=== PATIENT | female | born 1985 | race Asian ===

== ENCOUNTER 2024-06-17 05:44 | Emergency (ER) | payer MEDICAID, SELFPAY ==
[2024-06-17 05:46] VITALS: RESP 20; O2SAT 96; BMI 23.2
--- NOTE | 2024-06-17 05:54 | EKG_ITS ---
[facility] Test Date: 2024-06-17 Pat Name: IGOR AVALOS Department: Room: - Gender: Female [employer]: : 1985 Requested By: Randy Hernández Order Number: [id number] Reading MD: Randy Hernández Measurements Intervals [place] Rate: 82 P: 55 DE: 148 QRS: 86 QRSD: 81 T: 18 QT: 393 QTc: 459 Interpretive Statements SINUS RHYTHM INDETERMINATE AXIS NONSPECIFIC T-WAVE ABNORMALITY No previous ECG available for comparison /store/[email or web address]/[id number]
[2024-06-17 06:02] VITALS: BP 111/77; PULSE 93; RESP 19; TEMP 36.8; O2SAT 96
--- NOTE | 2024-06-17 06:38 | EDNOTE_ITS ---
<Statement entered by Mikala Espana MD - 06/24/24 04:32> As co-signing physician, I was present and available for consult prn. I concur with the plan and care as documented by the midlevel provider. ED Chest Pain RME/HPI General Chief Complaint: Chest Pain Stated Complaint: DYSPNEA CHEST PAIN Time Seen by Provider: 06/17/24 06:12 Arrival date/time: 06/17/24 05:44 This is a 38-year-old female that comes to the emergency room with complaints of chest pain shortness of breath. Patient reports that she was drinking last night and drank about 2 bottles of heavy liquor with other people. Patient reports that she was vomiting last night. Patient states that she could not catch her breath. Upon arrival to the emergency room she does feel better. Patient still complaining of nausea. Patient reports history of in the past. Related Data Previous Rx's ?Medication ?Instructions ?Recorded HYDROCODONE BIT/ACETAMINOPHEN 1 tab PO Q4HR PRN Patien t rated 07/06/15 (Vicodin 5/300) pain 4 to 6 #30 tabs ondansetron 4 mg disintegrating 4 mg PO Q6H PRN nausea and 06/17/24 tablet vomiting #10 tabs Allergies Allergy/AdvReac Type Severity Reaction Status Date / Time No Known Allergies Allergy Unknown Uncoded 06/17/24 05:54 Review of Systems Review of Systems Systems Reviewed: All systems reviewed, normal except as documented Past Medical History Past Medical History Comments PMH COMMENT: denies ED Exam Narrative Physical exam: VITAL SIGNS: Reviewed. GENERAL APPEARANCE: Alert and interactive, follows commands, no acute distress HEAD AND FACE: Non-traumatic. ENT: PERRL, pink conjunctivitis, eyelid no trauma, Mucous membrane moist. NECK: Supple, nontender, no nuchal rigidity. CHEST: No tenderness, no crepitus, no paradoxical movement, no retractions. LUNGS: Clear, well ventilated, symmetric, no rales, no wheezing, no ronchi, no stridor, good breath sounds bilaterally. HEART: Regular rate, regular rhythm, no murmur, no gallops. ABDOMEN: Soft, nondistended, no guarding, nontender, no rebound, no masses, NEUROLOGICAL: Gross motor function intact sensory function intact, Appropriate for age. MUSCULOSKELETAL: low back nontender, full range of motion. EXTREMITIES: No redness no swelling no skin breakdown on bilateral foot and leg. Distal neurovascular status intact bilateral foot SKIN: Color pink, dry, no rash, no lacerations, no abrasions, no contusions. Course Quality Measures none Orders Category Date Time Status EKG (ED ONLY) *Do not use* NOW Care 06/17/24 05:54 Completed EKG (ED ONLY) *Do not use* NOW Care 06/17/24 06:03 Completed EKG (ED Only) Stat Exams 06/17/24 05:54 Draft EKG (ED Only) Stat Exams 06/17/24 06:03 Ordered Ondansetron Odt [Zofran Odt] Med 06/17/24 06:35 Discontinued 4 mg PO X1 ONE Vital Signs Vital signs: Vital Signs Temperature 98.3 F 06/17/24 06:02 Pulse Rate 93 06/17/24 06:02 Respiratory Rate 19 06/17/24 06:02 Blood Pressure 111/77 06/17/24 06:02 Pulse Oximetry (%) 96 06/17/24 06:02 Oxygen Delivery Method Room Air 06/17/24 06:02 Procedures -ED EKG Interpretation #1: Date of EK06/17/24 Time of EK:14 Rate: 82 Interpretation: Interpreted by me (sinus rhythm ) EKG Impression: No ectopy, Normal QRS and Normal intervals Chest Pain MDM Narrative MDM Narrative:: Patient was nauseated upon arrival and was given Zofran for nausea. Patient feels better. Patient patient told to follow-up with his primary provider in 1 to 2 days. Patient comfortable plan of care. Patient data External records reviewed:: [facility] previous records Clinical information provided by:: patient Social determinants that could affect healthcare access:: none Patient has the following chronic illnesses:: none How is presenting disease/condition affected by chronic disease/condition?: no chronic disease Evaluation data The following diagnostics were reviewed and interpreted by me:: EKG tracing(s) Lab and/or radiology exams considered but not ordered:: none Interpretation Summary: see note Medications / Prescriptions Medications or Prescriptions considered but not ordered:: none Medication administrations:: Medication Administration History Discontinued Medications Ondansetron HCl (Ondansetron Odt 4 Mg Tabrap) 4 mg PO X1 ONE; Protocol Stop: 06/17/24 06:36 Last Admin: 06/17/24 07:06 Dose: 4 mg Documented By: JACKIE hunter Consultations Consultation(s) initiated? (list below): No Diagnosis Chest Pain Differential Diagnosis: other (Anxiety, intractable vomiting, alcohol poisoning, alcohol intoxication) Most likely diagnosis given after review of the tests above:: Alcohol intoxication with nausea vomiting Admission Indicated Admission indicated?: not indicated Admission Request Was there a request for admission?: No Disposition Plan Disposition Plan: Discharge Discharge Attestation Discharge Attestation: The patient and all family members were given an opportunity to ask questions and understood the discharge instructions. Discharge instructions specifically effects, indications for sooner follow up or return to the emergency department, and the expected course of current diagnosis. Patient condition: Stable Discharge Plan Plan Patient Disposition: HOME (Self Care) Patient condition on transfer: Stable Prescriptions/Referrals Prescriptions/Med Rec: New ondansetron 4 mg tablet,disintegrating 4 mg PO Q6H PRN (Reason: nausea and vomiting) Qty: 10 0RF No Action HYDROCODONE BIT/ACETAMINOPHEN (Vicodin 5/300) 1 TAB tablet 1 tab PO Q4HR PRN (Reason: Patient rated pain 4 to 6) Qty: 30 0RF Referrals: Kat Johnson PA-C [Primary Care Provider] - In 1 week Problem List Clinical Impression: Vomiting Patient/Caregiver Discharge Instructions Discharge Activity: activity as tolerated Education Materials: ED Vomiting (Adult) Additional Instructions: Follow up with primary provider in 1-2 days. Come back to ED if symptoms change or worsen Print Language: Greek Stand Alone Forms: Judie Award Info., Patient Portal Info Letter ROSA/GINGER Supervising Physician HARRISON Supervising Physician: merritt
[2024-06-17] MEDS: ONDANSETRON ODT 4 MG TABRAP PO (07:06)
== END 2024-06-17 08:03 | disposition home or self-care (01) ==
PROVIDERS: Emergency Provider Emergency Medicine; PCP Physician Assistant
DX: R11.2 Nausea with vomiting, unspecified (principal)
CPT/HCPCS: 93005; 99283; Q0162